=== PATIENT | male | born 1990 | race African-American/Black ===

== ENCOUNTER 2024-02-15 06:33 | Emergency (ER) | payer SELFPAY ==
[2024-02-15 06:37] VITALS: BP 137/95; BMI 27.3
[2024-02-15 07:02] LABS: Glucose - Point of Care 63 mg/dl (70-99)
--- NOTE | 2024-02-15 07:08 | ED.GENMED ---
History of Present Illness
General
Chief Complaint: Substance Abuse
Source: patient
Exam Limitations: none
Time Seen by Provider: 02/15/24 06:50
Travel History
Have you had any contact with someone who has COVID-19?: No
Do you have any symptoms of coronavirus? Fever > 100 degrees, chills, cough, shortness of breath, sore throat, loss of taste or smell, muscle aches, or headache?: No
History of Present Illness
History of Present Illness:
33-year-old male brought in by EMS. Apparently was on the street dancing and admitted to using crystal meth. Patient is from [facility] he is homeless. [place]. Has not been sleeping. States he wants help for
his mental use. States he has other addictions including food. Denies acute medical complaints at this time. Denies regular medication.
Past History
Past History
ED Past Medical History: None
Social History
Alcohol: None
Personal: Single
Living: homeless
Review of Systems
Review of Systems
All Other Systems: Not applicable
Constitutional: Denies fever
Respiratory: Reports no symptoms
Cardiac: Reports no symptoms
ABD/GI: Reports no symptoms
Phy Exam
Physical Exam
Physical Exam:
GENERAL: Alert . No distress. Currently has his blanket covering his face. Reluctant to talk.
EYE: Orbits normal.
NECK: Supple, no thyroid palpable.
ENT: Pharynx without erythema
CARDIAC: Regular rate and rhythm without any obvious murmurs.
LUNGS: Clear breath sounds,normal
ABDOMEN: Soft, without focal tenderness or distention
NEUROLOGICAL: Alert and oriented , grossly non-focal
SKIN: Warm and dry, no rash or lesion, no discoloration, skin intact.
MUSCULOSKELETAL: No edema,no deformity.Good color
PSYCH: Poor eye contact and reluctant to talk but fully awake alert and oriented.
Course
Orders/Labs/Results
Orders:
Orders
02/15/24 06:57
Bedside Glucose- Treatment ONCE
Abnormal Lab Results
02/15/24 02/15/24 02/15/24
06:58 07:19 07:38
POC Glucose 63 L mg/dl 62 L mg/dl 62 L mg/dl
(70-99) (70-99) (70-99)
Vital Signs
Initial and Last Documented VS:
Initial Vital Signs
Temp Pulse Resp BP Pulse Ox
98.4 F 73 22 137/95 99
02/15/24 06:37 02/15/24 06:37 02/15/24 06:37 02/15/24 06:37 02/15/24 06:37
Last Documented Vital Signs
Temp Pulse Resp BP Pulse Ox
98.4 F 73 22 137/95 99
02/15/24 06:37 02/15/24 06:37 02/15/24 06:37 02/15/24 06:37 02/15/24 06:37
MDM/Problems Addressed
Differential Diagnosis Includes:
Patient medically stable and nontoxic. Nothing to support acute medical issue. More of a social issue. Will ask [employer] assistance
*Pulse Oximetry
Patient hypoxic: no
*Critical Care Note
Total Time (30-74mins, 75-104mins- exclusive of procedures): Not Applicable
Update Note
Update Note:
0810... Patient does not want a wait. He is fully awake alert and oriented. Medically stable.
ED Attending Note
-
Portions of this chart may have been created with voice recognition software.� Occasional wrong word or��sound alike� substitutions may have occurred due to the inherent limitations of voice recognition software.
Discharge Plan
Departure
Patient Disposition: Home (Routine Discharge)
Date of Disposition: 02/15/24
Time of Disposition: 08:08
Patient with high blood pressure during this ER visit?: Yes
Discharge Problem:
Amphetamine use
Instructions: Drug Misuse and Addiction (DC), BLOOD PRESSURE
Activity Restrictions/Additional Instructions:
Please return if you change your mind about getting help for any addiction issues
Interventions
Interventions:
*Risk Screen - Suicide Last Done: 02/15/24 06:37
*General Assessment Last Done: 02/15/24 06:37
*Neglect/Abuse Screening Last Done: 02/15/24 06:37
*Nursing Disposition Last Done: 02/15/24 09:20
Discharge Date and Time
Discharge Date/Time: 02/15/24 09:21
Print Language: SINHALA
[2024-02-15 07:21] LABS: Glucose - Point of Care 62 mg/dl (70-99)
[2024-02-15 07:39] LABS: Glucose - Point of Care 62 mg/dl (70-99)
== END 2024-02-15 09:21 | disposition home or self-care (01) ==
LOC: EMR 06:33
PROVIDERS: EMERGENCY PHYSICIAN Emergency Medicine
DX: F15.90 Other stimulant use, unspecified, uncomplicated (principal); R03.0 Elevated blood-pressure reading, without diagnosis of hypertension; Z59.00 Homelessness unspecified
CPT/HCPCS: 99283; 82962